=== PATIENT | female | born 1960 | race Caucasian/White ===

== ENCOUNTER 2018-09-26 08:11 | Inpatient (IN) | payer OTHER ==
[~2018-09-26] VITALS: Ht 165.1 cm; Wt 68.5 kg
[~2018-09-26 08:11] MED LIST: GLIPIZIDE10 MG PO; ZOCOR20 MG PO
[2018-09-26] MEDS ORDERED: PERCOCET 5-3251 EACH PO (09:24)
[2018-09-26] MEDS ORDERED: BACTRIM DS TAB1 EACH PO (09:24)
== END 2018-09-27 10:33 | disposition home or self-care (01) | DRG 748 ==
LOC: CIR.AMB 08:11 → SURG 14:15 → CIR.AMB 14:15 → EDSTATUS 14:15 → SURH 16:47 → CIR.AMB 18:15 → SURH 09-27 10:33
PROVIDERS: Obstetrics & Gynecology Gynecology
PROC: 0JQC0ZZ Repair Pelvic Region Subcutaneous Tissue and Fascia, Open Approach (ICD-10-PCS; principal; 2018-09-26 18:15)
DX: N81.11 Cystocele, midline (principal)

== ENCOUNTER 2021-07-23 11:15 | Inpatient (IN) | payer OTHER ==
[~2021-07-23] VITALS: Ht 165.1 cm; Wt 63.0 kg
[~2021-07-23 11:15] MED LIST changes: +BACTRIM DS TAB1 EACH PO; +PERCOCET 5-3251 EACH PO
[2021-07-23] MEDS ORDERED: GLIPIZIDE XL10 MG PO (12:40)
[2021-07-23] MEDS ORDERED: PRILOSEC OTC20 MG PO (12:40)
[2021-07-28] MEDS ORDERED: OMEPRAZOLE20 MG (16:22)
[2021-07-30] MEDS ORDERED: OXYC1TAB9 PO (07:39)
[2021-07-30] MEDS ORDERED: BACTRIM DS TAB1 EACH PO (07:41)
== END 2021-07-30 08:38 | disposition home or self-care (01) | DRG 743 ==
LOC: O/R 07-28 06:45 → OB/GYN 07-28 06:45
PROVIDERS: ADMIT Obstetrics & Gynecology Gynecology; ATTEND Obstetrics & Gynecology Gynecology
PROC: 0JQC0ZZ Repair Pelvic Region Subcutaneous Tissue and Fascia, Open Approach (ICD-10-PCS; 2021-07-28)
PROC: 0USG0ZZ Reposition Vagina, Open Approach (ICD-10-PCS; 2021-07-28)
PROC: 0UT97ZZ Resection of Uterus, Via Natural or Artificial Opening (ICD-10-PCS; principal; 2021-07-28 10:45)
DX: N81.3 Complete uterovaginal prolapse (principal); E11.9 Type 2 diabetes mellitus without complications; E78.5 Hyperlipidemia, unspecified